=== PATIENT | male | born 1955 | race Caucasian/White ===

== ENCOUNTER 2016-08-07 20:36 | Emergency (ER) | payer SELFPAY ==
[2016-08-07] MEDS ORDERED: SULFAMETHOXAZOLE/TRIMETHOPRIM 800-160 MG TABLET PO ONE (23:52)
[2016-08-07] MEDS ORDERED: CEPHALEXIN 500 MG CAPSULE PO ONE (23:52)
[2016-08-07] MEDS ORDERED: HYDROCODONE/ACETAMINOPHEN 5-325 MG TABLET PO ONE (23:52)
--- NOTE | 2016-08-07 23:53 | ER Document Report ---
ED Extremity Problem, Lower - General Mode of Arrival: Wheelchair Information source: Patient, Relative - spouse TRAVEL OUTSIDE OF THE [place] IN LAST 30 DAYS: No - HPI Patient complains to provider of: Pain, Swelling Location: Knee, Leg Occurred: Other - Refer to HPI notes Onset/Duration: Gradual - General Chief Complaint: Knee Injury Stated Complaint: RIGHT KNEE INJURY Time Seen by Provider: 08/07/16 23:32 Notes: Patient is a 60-year-old male presents to the emergency department with swelling and pain to his right knee. Patient states that he injured his knee on 08/02/2016. Patient has had increased pain since then. Patient's pain is from the mid kneecap to his mid baker. Patient also tried to drain the area with a sterilized needle at home. Patient states there is no drainage with he poked the area needle. Patient states he has increased pain with movement and has nausea but denies any fevers or chills. Patient states that she has a history of glaucoma and seasonal allergies but is otherwise healthy. (INDRA LEBLANC) - Related Data Allergies/Adverse Reactions: aspirin Allergy (Unknown, Verified 08/07/16 21:23) Anaphylaxis Past Medical History - General Information source: Patient - Social History Smoking Status: Never Smoker Cigarette use (# per day): No Chew tobacco use (# tins/day): No Frequency of alcohol use: None Drug Abuse: Marijuana Occupation: [employer] Family History: None Patient has suicidal ideation: No Patient has homicidal ideation: No EENT Medical History: Reports: Eyes - Glaucoma Surgical Hx: Negative Review of Systems - Review of Systems Constitutional: No symptoms reported EENT: No symptoms reported Cardiovascular: No symptoms reported Respiratory: No symptoms reported Gastrointestinal: No symptoms reported Genitourinary: No symptoms reported Male Genitourinary: No symptoms reported Musculoskeletal: See HPI Skin: See HPI Hematologic/Lymphatic: No symptoms reported Neurological/Psychological: No symptoms reported -: Yes All other systems reviewed and negative Physical Exam - Vital signs Vitals: Temp Pulse Resp BP Pulse Ox 97.9 F 80 20 135/66 H 99 08/07/16 21:22 08/07/16 21:22 08/07/16 21:22 08/07/16 21:22 08/07/16 21:22 - Notes Notes: GENERAL: Alert, interacts well, appears uncomfortable. No acute distress. HEAD: Normocephalic, atraumatic. EYES: Pupils equal, round, and reactive to light. Extraocular movements intact. ENT: Oral mucosa moist, tongue midline. NECK: Full range of motion. Supple. Trachea midline. LUNGS: Clear to auscultation bilaterally, no wheezes, rales, or rhonchi. No respiratory distress. HEART: Regular rate and rhythm. No murmurs, gallops, or rubs. ABDOMEN: Soft, non-tender. Non-distended. Bowel sounds present in all 4 quadrants. EXTREMITIES: Moves all 4 extremities spontaneously. Full range of motion to the right leg and knee, limited only by pain. Able to bend the right knee past 90. Minimal effusion to the right knee with a 3 cm circular area of erythema. There is a central open area consistent with the patient using a needle. Erythema extends down to the baker anteriorly. No tenderness to the popliteal fossa. No edema, radial and dorsalis pedis pulses 2/4 bilaterally. No cyanosis. NEUROLOGICAL: Alert and oriented x3. Normal speech. PSYCH: Normal affect, normal mood. SKIN: Warm, dry, good capillary refill, normal turgor. (INDRA LEBLANC) Course - Re-evaluation Re-evalutation: 08/08/16 00:05 No effusion or bony abnormality noted on x-ray. Physical exam consistent with superficial cellulitis, no evidence of septic joint. No evidence of abscess. Discussed with patient the need for antibiotics, told him to stop sticking needles into his leg in order to drain an abscess it is not there. Asked patient to return to the emergency department for increasing redness, any fevers or any difficulty bending his knee. Started antibiotics in the form of Bactrim and Keflex. Discharged home. (NICHOLE DEMARCO) - Vital Signs Vital signs: Temp Pulse Resp BP Pulse Ox 98.0 F 71 16 137/68 H 94 08/07/16 23:56 08/07/16 23:56 08/07/16 23:56 08/07/16 23:56 08/07/16 23:56 Discharge - Discharge Clinical Impression: Cellulitis of left knee Hypertension Qualifiers: Hypertension type: essential hypertension Qualified Code(s): I10 - Essential ( primary) hypertension Condition: Stable Disposition: HOME, SELF-CARE Instructions: Cellulitis ([facility]) Additional Instructions: Please take the antibiotics as directed until they are gone. Please use ibuprofen (Motrin or Advil) 600-800 mg every 8 hours as needed for pain or fever. You may also use acetaminophen (Tylenol) 1000 mg every 4-6 hours as needed for pain or fever. Please be aware that many medications contain acetaminophen, do not exceed a total of 1000 mg of acetaminophen every 6 hours. Please return if the redness spreads, if you develop fevers, if your knee swells more or if you cannot bend your knee. Prescriptions: Cephalexin Monohydrate [Keflex 500 mg Capsule] 500 mg PO QID 7 Days Sulfamethoxazole/Trimethoprim [Bactrim Ds Tablet] 1 each PO BID 7 Days Scribe Attestation: 08/08/16 02:32 I personally performed the services described in the documentation, reviewed and edited the documentation which was dictated to the scribe in my presence, and it accurately records my words and actions. (NICHOLE DEMARCO) Scribe Documentation - Scribe Written by Edilberto:: Edilberto Anna, 08/08/2016 2:23 acting as scribe for :: Phil
[2016-08-08 00:09] VITALS: BP 137/68
--- NOTE | 2016-09-20 09:53 | OPERATIVE REPORT E ---
Operative Report NAME: MAHI KEENAN : 1955 AGE: 60Y DATE OF SURGERY: 08/08/2016 ROOM: PREOPERATIVE DIAGNOSIS: RIGHT PRETIBIAL ABSCESS. POSTOPERATIVE DIAGNOSIS: RIGHT PRETIBIAL ABSCESS. OPERATION: Incision and drainage of right pretibial abscess. SURGEON: ANDREIA KIM M.D. ANESTHESIA: 10 mL of local 1% lidocaine. ESTIMATED BLOOD LOSS 10 mL. IMPLANTS: None. COMPLICATIONS: None. DRAINS: None. PACKING: Iodoform packing was placed. DESCRIPTION OF PROCEDURE: Patient had a bedside incision and drainage of pretibial abscess on the right side. An incision and drainage tray from the ER was obtained and after cleaning the right pretibial region with chlorhexidine, sterile towels and drapes were applied, and the sterile incision and drainage tray was opened. I had sterile gloves and proceeded then to using a #11 blade to do a 1-1/2 incision right over the pretibial abscess. Of note: I had already injected the region with 10 mL of 1% lidocaine and while I prepared the leg, the lidocaine had taken. The minute I opened the incision, pus came out and cultures were obtained. I proceeded then to use a clamp to spread and expose all the loculations. I proceeded to then squeeze and express all the pus available. Then, I proceeded to use a sterile syringe and inject sterile saline solution to clear up the region. Sterile Iodoform packing was then inserted and cut and then a pack of 4 x 4 dressings were applied, and overwrapped with Kerlix. All other sterile towel and drapes were removed and disposed. The sharps were disposed in the sharps container. Patient tolerated the procedure well. PATIENT PLAN: Is to be admitted for IV antibiotics and dressing changes. DICTATING PHYSICIAN: Jannet MAO [id number] PHY#: [id number] ID: [id number] JOB#: [id number] ACCT: [id number] cc:ANDREIA KIM M.D. >
== END 2016-08-08 00:10 | disposition home or self-care (01) ==
LOC: ER 20:36
DX: L03.116 Cellulitis of left lower limb (principal); Z88.6 Allergy status to analgesic agent
CPT/HCPCS: 99283

== ENCOUNTER 2016-08-08 22:32 | Inpatient (IN) | payer SELFPAY ==
[2016-08-09] MEDS ORDERED: VANCOMYCIN HCL INJ 1000 MG VIAL IV ONE ×2 (02:34→02:36)
[2016-08-09] MEDS ORDERED: OXYCODONE-ACETAMINOPHEN 5-325 MG TABLET PO ONE (02:34)
[2016-08-09] MEDS ORDERED: NORMAL SALINE 1000 ML 1,000 ML IV ONE (02:36)
[2016-08-09] MEDS ORDERED: CEFAZOLIN 1 GM/D5W RTU 50 ML IV ONE (02:36)
[2016-08-09 03:48] LABS: ABSOLUTE BASOPHILS # (AUTO) 0.1 10^3/uL (0.0-0.2); ABSOLUTE EOSINOPHILS # (AUTO) 0.1 10^3/uL (0.0-0.6); ABSOLUTE LYMPHOCYTES (AUTO) 1.2 10^3/uL (0.5-4.7); ABSOLUTE MONOCYTES (AUTO) 1.1 10^3/uL (0.1-1.4); ABSOLUTE NEUT (AUTO) 15.4 10^3/uL (1.7-8.2); BASOPHILS % (AUTO) 0.3 % (0-2); EOSINOPHILS % (AUTO) 0.3 % (0-6); HEMATOCRIT 38.8 % (37.9-51.0); HGB HCT DIFFERENCE 0.2; LYMPHOCYTES % (AUTO) 6.5 % (13-45); MEAN CORPUSCULAR HEMOGLOBIN 30.6 pg (27.0-33.4); MEAN CORPUSCULAR HGB CONC 33.3 g/dL (32.0-36.0); MEAN CORPUSCULAR VOLUME 92 fl (80-97); MONOCYTES % (AUTO) 6.4 % (3-13); RED BLOOD COUNT 4.23 10^6/uL (4.35-5.55); SEGMENTED NEUTROPHILS % (AUTO) 86.5 % (42-78); WHITE BLOOD COUNT 17.8 10^3/uL (4.0-10.5)
[2016-08-09 03:55] LABS: ALANINE AMINOTRANSFERASE 30 U/L (21-72); ALBUMIN 4.3 g/dL (3.5-5.0); ALKALINE PHOSPHATASE 76 U/L (38-126); ANION GAP 12 (5-19); ASPARTATE AMINO TRANSFERASE 22 U/L (17-59); BILIRUBIN,DIRECT 0.5 mg/dL (0.0-0.4); BILIRUBIN,TOTAL 1.2 mg/dL (0.2-1.3); BLOOD UREA NITROGEN 27 mg/dL (7-20); CALCIUM 10.1 mg/dL (8.4-10.2); CARBON DIOXIDE 27 mmol/L (22-30); CHLORIDE 100 mmol/L (98-107); CREATININE RESULT 1.07 mg/dL (0.52-1.25); GLUCOSE 113 mg/dL (75-110); POTASSIUM 4.6 mmol/L (3.6-5.0); SODIUM 139.1 mmol/L (137-145)
[2016-08-09] MEDS ORDERED: MORPHINE SULFATE 10 MG/ML INJ ONE (06:53)
[2016-08-09] MEDS ORDERED: ONDANSETRON HCL INJ/PF 4 MG/2 ML SDV ONE (07:30)
[2016-08-09] MEDS ORDERED: HYDROMORPHONE HCL INJ/PF 2 MG/ML AMPULE ONE ×2 (09:02→12:55)
[2016-08-09] MEDS ORDERED: LIDOCAINE 1% INJ-PF (10 MG/ML) 30 ML SDV ONE (12:40)
[2016-08-09] MEDS ORDERED: OXYCODONE HCL IR 5 MG TABLET ONE (15:30)
[2016-08-09] MEDS ORDERED: MAG HYDROX/AL HYDROX/SIMETH SUSP 30 ML UDCUP ONE (15:46)
[2016-08-09] MEDS ORDERED: ACETAMINOPHEN 325 MG TABLET ONE (16:10)
[2016-08-09] MEDS ORDERED: ACETAMINOPHEN 325 MG TABLET PO PRN (18:23)
[2016-08-09] MEDS ORDERED: MAG HYDROX/AL HYDROX/SIMETH SUSP 30 ML UDCUP PO PRN (22:00)
[2016-08-09] MEDS: VANCOMYCIN HCL 1,250 MG in DEXTROSE 5%-WATER 250 ML IV SCH ×2 (23:15→23:46)
[2016-08-09] MEDS ORDERED: VANCOMYCIN HCL INJ 1000 MG VIAL ONE (23:24)
[2016-08-09] MEDS: OXYCODONE HCL IR 5 MG TABLET PO PRN (23:44)
[2016-08-10] MEDS: OXYCODONE HCL IR 5 MG TABLET PO PRN ×5 (03:45→21:11)
[2016-08-10 06:25] LABS: HEMATOCRIT 34.4 % (37.9-51.0); HEMOGLOBIN 11.3 g/dL (13.5-17.0); HGB HCT DIFFERENCE -0.5; MEAN CORPUSCULAR HEMOGLOBIN 30.7 pg (27.0-33.4); MEAN CORPUSCULAR HGB CONC 32.9 g/dL (32.0-36.0); MEAN CORPUSCULAR VOLUME 93 fl (80-97); RED BLOOD COUNT 3.68 10^6/uL (4.35-5.55); RED CELL DISTRIBUTION WIDTH 12.9 % (11.5-14.0); WHITE BLOOD COUNT 14.9 10^3/uL (4.0-10.5)
[2016-08-10 06:37] LABS: ANION GAP 11 (5-19); BLOOD UREA NITROGEN 16 mg/dL (7-20); CALCIUM 9.5 mg/dL (8.4-10.2); CARBON DIOXIDE 25 mmol/L (22-30); CHLORIDE 101 mmol/L (98-107); CREATININE RESULT 0.83 mg/dL (0.52-1.25); GLUCOSE 103 mg/dL (75-110); POTASSIUM 4.1 mmol/L (3.6-5.0); SODIUM 136.9 mmol/L (137-145)
--- NOTE | 2016-08-10 08:44 | HISTORY AND PHYSICAL E ---
History and Physical NAME: MAHI KEENAN : 1955 AGE: 60Y ADMITTED: 08/09/2016 ROOM: 430 TIME OF ADMISSION: 1330 hours. PRIMARY CARE PROVIDER: None. CHIEF COMPLAINT: Right knee pain. 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 Patient feels as though he had a puncture wound to his right knee while he was at work. 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 He is not sure exactly what caused the puncture wound as he could never find out. Nonetheless, since his injury, he has had increased worsening of swelling. By the time of my evaluation, he had already been evaluated by Dr. Vinita Judge of orthopedics, and had incision and drainage to his right knee. He complains of pain to this area despite having had IV pain medication in the emergency department. PAST MEDICAL HISTORY: None. PAST SURGICAL HISTORY: He has had, he states, a rectal polypectomy in the past (noncancerous). SOCIAL HISTORY: He denies tobacco or alcohol use. 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 FAMILY HISTORY: Denies any family history of diabetes or hypertension. MEDICATIONS: None. ALLERGIES: ASPIRIN. CODE STATUS: FULL CODE STATUS. REVIEW OF SYSTEMS: He denies fevers, chills, weight loss, weight gain, fatigue, anorexia, visual disturbance, headache, hearing loss, dyspnea, cough, hemoptysis, pleurisy, chest pain, paroxysmal nocturnal dyspnea, orthopnea, edema, abdominal pain, nausea, vomiting, diarrhea, constipation, hematemesis, melena, hematochezia, dysuria, urinary urgency or frequency, rash, or hematuria. He does have erythema around his right knee and swelling of his right knee. He denies weakness, numbness, dizziness, dysphagia, dysarthria, ataxia, polydipsia, polyuria, hot or cold intolerance, depression, anxiety, hallucinations, delusions, bleeding, bruising. PHYSICAL EXAMINATION: VITAL SIGNS: Temperature 99.3, blood pressure 112/64, pulse 89, respirations 16. O2 saturation is 95%. GENERAL: He is alert. He is in no apparent distress. HEENT: Normocephalic. Sclerae nonicteric. Conjunctivae clear. Extraocular movements intact. Pupils equal, round, reactive to light and accommodation. Oropharynx has moist mucous membranes. NECK: Has midline trachea. No thyromegaly. RESPIRATORY: Clear to auscultation. No wheeze, rhonchi. CARDIAC: Regular rate, rhythm. No murmurs, gallops, rubs. ABDOMEN: Soft, nontender, nondistended. Positive bowel sounds. No rebound or guarding. EXTREMITIES: He has pitting edema in his right lower extremity. No edema in the left lower extremity. He has gauze dressing to his right knee at recent I and D site. VASCULAR EXAM: Normal peripheral pulses. NEUROLOGIC: He is alert. He is oriented to person, place and time with normal speech. Cranial nerves intact, 5/5 strength in all 4 extremities. SKIN EXAMINATION: Erythema around right anterior knee to around mid-tibial area distally and distal femur area proximally. PSYCHIATRIC: Normal mood and affect. LABORATORIES: White blood count 17.8, hemoglobin is 13.0, platelet count 233. Sodium 139, potassium 4.5, chloride 100, bicarbonate 27, BUN 26. Creatinine 1.07, glucose 112. MRI shows no intraarticular fluid collection in the right knee. ASSESSMENT AND PLAN: 1. RIGHT PREPATELLAR SEPTIC BURSITIS/RIGHT LOWER EXTREMITY CELLULITIS. Patient is status post incision and drainage by Dr. Vinita Judge of Orthopedics. I will continue IV vancomycin that was initiated in the emergency department pending further culture and sensitivity. Elevate leg. Daily dressing changes. Oxycodone for pain p.r.n. 2. SYSTEMIC INFLAMMATORY RESPONSE SYNDROME, SECONDARY TO SOFT TISSUE INFECTION MENTIONED ABOVE. DICTATING PHYSICIAN: HUGH SANTILLAN M.D. [id number] PHY#: [id number] ID: [id number] JOB#: [id number] ACCT: [id number] cc: >
[2016-08-10 14:19] LABS: APPEARANCE,URINE CLEAR; BILIRUBIN,URINE NEGATIVE (NEGATIVE); GLUCOSE, URINE NEGATIVE (NEGATIVE); KETONES,URINE NEGATIVE (NEGATIVE); LEUKOCYTE ESTERASE,URINE NEGATIVE (NEGATIVE); NITRITE,URINE NEGATIVE (NEGATIVE); PROTEIN,URINE NEGATIVE (NEGATIVE); URINE SPECIFIC GRAVITY 1.023; UROBILINOGEN,URINE NEGATIVE mg/dL (<2.0)
[2016-08-10] MEDS: DOCUSATE SODIUM 100 MG CAPSULE PO SCH (17:06)
--- NOTE | 2016-08-10 17:15 | XCELERA REPORT ---
[address] [address] Lower Extremity Venous Evaluation Name: MAHI KEENAN JR Age: 60 yrs Gender: Male : 1955 Patient Status: Inpatient Patient Location: 4S\S\430\S\A Study Date: 08/10/2016 03:37 PM Procedure: Color flow and duplex imaging of the veins of the right lower extremity as well as the left Common Femoral vein. Reason For Study: right leg pain/swelling Ordering Physician: HUGH MUNOZ Performed By: Yashira Tiwari Right Sided Venous Evaluation Normal vessel filling wall to wall, compression and augmentation as well as Colour flow down to the infrageniculate veins. Left Sided Venous Evaluation The left common femoral vein is fully compressible. Spontaneous and phasic flow is present in the left common femoral vein. Critical Findings Called in to Dr Munoz at about 1600. Interpretation Summary No duplex evidence of DVT or obstruction in the right lower extremity nor in the left Common Femoral vein. : HUGH MUNOZ > Issa Andrew
--- NOTE | 2016-08-10 20:51 | PROGRESS NOTE E ---
Progress Note NAME: MAHI KEENAN : 1955 AGE: 60Y DATE: 08/10/2016 ROOM: 430 TIME SPENT MANAGING PATIENT: 25 minutes SUBJECTIVE: The patient has improved pain in his right lower extremity, but he still has a significant amount of pain and swelling. He is also having constipation per nursing staff. He denies fever, chills, chest pain, shortness of breath, abdominal pain, nausea, vomiting. OBJECTIVE: VITAL SIGNS: Temperature 98.0, blood pressure 119/62, pulse 64, respirations 20. GENERAL: He is alert, in no acute distress. HEENT: Sclerae is anicteric. Conjunctivae clear. Oropharynx has moist mucous membranes. NECK: No JVD. Midline trachea. RESPIRATORY: Clear to auscultation. No wheeze or rhonchi. CARDIAC: Regular rate and rhythm. No murmurs, gallops, or rubs. ABDOMEN: Soft, nontender, nondistended. Positive bowel sounds. No rebound, no guarding. EXTREMITIES: He has pitting edema in right lower extremity. SKIN: He still has a fair amount of erythema and warmth about the right lower extremity from distal femur down to around the mid tibial region. LABS: White blood count 14.9, hemoglobin 11.3. Chemistry panel is unremarkable. C-reactive protein elevated at 192. Sed rate 51. ASSESSMENT AND PLAN: 1. SYSTEMIC INFLAMMATORY RESPONSE SYNDROME SECONDARY TO SOFT TISSUE INFECTION MENTIONED ABOVE. Improving. The patient is afebrile. White blood count trending down. 2. RIGHT PREPATELLAR SEPTIC BURSITIS/RIGHT LOWER EXTREMITY CELLULITIS. Continue intravenous vancomycin pending further culture and sensitivity. Wound culture tentatively growing gram-positive cocci in clusters and group G beta streptococcus. The patient is status post I and D by Dr. Talamantes of Orthopedics on 08/09/2016. 3. RIGHT LOWER EXTREMITY SWELLING. Check right lower extremity venous Doppler to rule out deep venous thrombosis. DICTATING PHYSICIAN: HUGH SANTILLAN M.D. [id number] PHY#: [id number] ID: [id number] JOB#: [id number] ACCT: [id number] cc: >
[2016-08-10] MEDS: VANCOMYCIN HCL 1,250 MG in DEXTROSE 5%-WATER 250 ML IV SCH (21:10)
[2016-08-11] MEDS: OXYCODONE HCL IR 5 MG TABLET PO PRN ×2 (02:01→08:27)
[2016-08-11 05:57] LABS: ABSOLUTE BASOPHILS # (AUTO) 0.1 10^3/uL (0.0-0.2); ABSOLUTE EOSINOPHILS # (AUTO) 0.2 10^3/uL (0.0-0.6); ABSOLUTE LYMPHOCYTES (AUTO) 1.3 10^3/uL (0.5-4.7); ABSOLUTE MONOCYTES (AUTO) 0.7 10^3/uL (0.1-1.4); ABSOLUTE NEUT (AUTO) 7.8 10^3/uL (1.7-8.2); EOSINOPHILS % (AUTO) 2.2 % (0-6); HEMOGLOBIN 11.4 g/dL (13.5-17.0); HGB HCT DIFFERENCE 1.2; LYMPHOCYTES % (AUTO) 13.2 % (13-45); MEAN CORPUSCULAR HEMOGLOBIN 31.6 pg (27.0-33.4); MEAN CORPUSCULAR HGB CONC 34.5 g/dL (32.0-36.0); MEAN CORPUSCULAR VOLUME 92 fl (80-97); MONOCYTES % (AUTO) 6.8 % (3-13); RED BLOOD COUNT 3.61 10^6/uL (4.35-5.55); RED CELL DISTRIBUTION WIDTH 12.7 % (11.5-14.0); SEGMENTED NEUTROPHILS % (AUTO) 76.8 % (42-78); WHITE BLOOD COUNT 10.2 10^3/uL (4.0-10.5)
[2016-08-11 06:13] LABS: ANION GAP 10 (5-19); BLOOD UREA NITROGEN 18 mg/dL (7-20); CALCIUM 9.9 mg/dL (8.4-10.2); CARBON DIOXIDE 28 mmol/L (22-30); CHLORIDE 102 mmol/L (98-107); CREATININE RESULT 0.79 mg/dL (0.52-1.25); GLUCOSE 108 mg/dL (75-110); SODIUM 139.7 mmol/L (137-145)
[2016-08-11 06:21] LABS: POTASSIUM 5.4 mmol/L (3.6-5.0)
[2016-08-11] MEDS ORDERED: ENOXAPARIN SODIUM INJ 40 MG/0.4 ML DISP.SYRIN SUBCUT SCH (08:00)
[2016-08-11 09:18] VITALS: BP 141/81
[2016-08-11] MEDS: VANCOMYCIN HCL 1,250 MG in DEXTROSE 5%-WATER 250 ML IV SCH (10:41)
[2016-08-11] MEDS: DOCUSATE SODIUM 100 MG CAPSULE PO SCH (10:41)
[2016-08-11 11:27] LABS: ANION GAP 14 (5-19); BLOOD UREA NITROGEN 17 mg/dL (7-20); CALCIUM 10.2 mg/dL (8.4-10.2); CARBON DIOXIDE 26 mmol/L (22-30); CHLORIDE 100 mmol/L (98-107); CREATININE RESULT 0.77 mg/dL (0.52-1.25); GLUCOSE 108 mg/dL (75-110); SODIUM 140.2 mmol/L (137-145)
--- NOTE | 2016-08-11 13:57 | DISCHARGE SUMMARY E ---
Discharge Summary NAME: MAHI KEENAN : 1955 AGE: 60Y ADMITTED: 08/09/2016 DISCHARGED: 08/11/2016 TIME OF DISCHARGE: 10:45 a.m. TIME SPENT ON DISCHARGE: Thirty minutes. DISCHARGE DIAGNOSES: 1. MRSA/Streptococcus prepatellar bursitis/cellulitis of the right knee. 2. Systemic inflammatory response syndrome secondary to #1. 3. Constipation. DISCHARGE MEDICATIONS: 1. Doxycycline 100 mg p.o. b.i.d. x14 days. 2. Percocet 10/325 one p.o. q.6 h. p.r.n. pain. 3. Colace 100 mg p.o. b.i.d. HOSPITAL COURSE: The patient was seen in the emergency department for right prepatellar bursitis by Dr. Talamantes of orthopedics and underwent incision and drainage in the emergency department with wound culture. He was admitted to the hospitalist service and initially started on IV vancomycin. Wound culture grew MRSA and also group G beta Streptococcus. The organism was sensitive to doxycycline, Bactrim, rifampin and vancomycin. The patient's lower extremity erythema and induration markedly improved on IV vancomycin to the point he is stable for discharge on oral antibiotic regimen. His leg was repacked by me on 08/11/2016. He is advised to continue outer dry gauze dressing changes daily until followup with orthopedics. We will have him follow up with Dr. Talamantes of orthopedics and also [facility]. DISCHARGE ACTIVITY: As tolerated. DISCHARGE DIET: Regular diet. DISCHARGE CONDITION: Stable. CODE STATUS: FULL CODE STATUS. DISCHARGE ALLERGIES: ASPIRIN. PHYSICAL EXAMINATION AT TIME OF DISCHARGE: VITAL SIGNS: Temperature 98.1, blood pressure 141/81, pulse 68, respirations 20. GENERAL: She is alert and in no acute distress. RESPIRATORY: Clear to auscultation. CARDIAC: Regular rate and rhythm. ABDOMEN: Soft, nontender. EXTREMITIES: He has some trace pitting edema in the right lower extremity. SKIN: Erythema and induration surrounding the right knee have markedly improved from admission. He does have a 1 cm incision over the right prepatellar bursa. LABS AT TIME OF DISCHARGE: White blood count 10.2, hemoglobin 11.4, hematocrit 33.0, platelets 229. Sodium 139, potassium 5.4, chloride 102, bicarbonate 28, BUN 18, creatinine 0.79, glucose 108, calcium 9.9. C-reactive protein 192. Sed rate 51. MRI of the knee showed cellulitis around the right knee with a fluid collection at the prepatellar bursa. No evidence of osteomyelitis or intraarticular fluid. Venous Doppler of the right lower extremity was negative for DVT. DISCHARGE FOLLOWUP: 1. Follow up with Dr. Talamantes of orthopedics. 2. Follow up with [facility]. DICTATING PHYSICIAN: UHGH SANTILLAN M.D. [id number] PHY#: [id number] ID: [id number] JOB#: [id number] ACCT: [id number] cc:[facility] ANDREIA CELESTE M.D., ROBERT >
[2016-08-11] MEDS ORDERED: VANCOMYCIN HCL 1,250 MG in DEXTROSE 5%-WATER 250 ML IV SCH (18:00)
--- NOTE | 2016-09-19 09:05 | ER Document Report ---
ED Extremity Problem, Lower - General Chief Complaint: Knee Pain Stated Complaint: KNEE PAIN Time Seen by Provider: 08/09/16 02:13 Mode of Arrival: Wheelchair Information source: Patient Notes: Patient is a 61-year-old male who presents to the ER today for right knee pain that has worsened since being here approximately 1 day ago being diagnosed with cellulitis, given antibiotics. Patient states that he was told that if the swelling, redness or pain worsen to come back immediately. He is taking his antibiotics but states that it is so painful that he cannot sleep or get any rest and that he can barely bend the knee much less walk on it. He states he cannot bear weight at all due to the pain. He states that the swelling has worsened to surrounding the entire knee. He does admit injury on August 02 by accidentally kneeling on a nail. TRAVEL OUTSIDE OF THE [place] IN LAST 30 DAYS: No - Related Data Allergies/Adverse Reactions: aspirin Allergy (Unknown, Verified 08/07/16 21:23) Anaphylaxis Home Medications: Current Home Medications Diphenhydramine HCl [Benadryl] 50 mg PO QHS 08/09/16 [History] Past Medical History - General Information source: Patient - Social History Smoking Status: Never Smoker Chew tobacco use (# tins/day): No Frequency of alcohol use: None Family History: None Patient has suicidal ideation: No Patient has homicidal ideation: No Renal/ Medical History: Denies: Hx Peritoneal Dialysis Surgical Hx: Negative - Immunizations Hx Diphtheria, Pertussis, Tetanus Vaccination: Yes Review of Systems - Review of Systems Constitutional: No symptoms reported EENT: No symptoms reported Cardiovascular: No symptoms reported Respiratory: No symptoms reported Gastrointestinal: No symptoms reported Genitourinary: No symptoms reported Male Genitourinary: No symptoms reported Musculoskeletal: See HPI Skin: See HPI Hematologic/Lymphatic: No symptoms reported Neurological/Psychological: No symptoms reported Physical Exam - Vital signs Vitals: Temp Pulse Resp BP Pulse Ox 99.3 F 79 16 112/64 94 08/08/16 22:44 08/08/16 22:44 08/08/16 22:44 08/08/16 22:44 08/08/16 22:44 - Notes Notes: PHYSICAL EXAMINATION: GENERAL: Obviously uncomfortable, but in no acute distress. HEAD: Atraumatic, normocephalic. EYES: Pupils equal round and reactive to light, extraocular movements intact, sclera anicteric, conjunctiva are normal. NECK: Normal range of motion, supple without lymphadenopathy LUNGS: CTAB and equal. No wheezes rales or rhonchi. HEART: Regular rate and rhythm without murmurs EXTREMITIES: Extremely limited range of motion secondary to pain of the right knee, edema circumferential to the right knee, extremely tender to palpation no pitting edema. No cyanosis. NEUROLOGICAL: Cranial nerves grossly intact. Normal sensory/motor exams. PSYCH: Normal mood, normal affect. SKIN: Warm, Dry, normal turgor, erythema and edema circumferential to the right knee, extremely tender to palpation, small scab overlying center Course - Re-evaluation Re-evalutation: 09/19/16 09:08 This is a paper chart as this is during downtime. Lab work is unremarkable today, however I am concerned for septic joint at this time with failure of outpatient antibiotics. Dr. Talamantes, orthopedic health education coordinator was called and will come evaluate the patient in a few hours as he is out of town. He advises MRI. MRI did show an abscess, possibly where patient initially injured by kneeling on nail due to proximity to puncture wound. Patient was admitted for cellulitis of the right knee, white count is normal, patient afebrile. 09/19/16 09:10 - Vital Signs Vital signs: Temp Pulse Resp BP Pulse Ox 98.1 F 68 20 141/81 H 100 08/11/16 15:27 08/11/16 15:27 08/11/16 15:27 08/11/16 08:15 08/11/16 15:27 - Laboratory Result Diagrams: 08/11/16 05:24 08/11/16 10:09 Laboratory results interpreted by me: 08/09/16 08/09/16 08/09/16 03:25 03:25 06:10 WBC 17.8 H RBC 4.23 L Hgb 13.0 L Seg Neutrophils % 86.5 H Lymphocytes % 6.5 L Absolute Neutrophils 15.4 H ESR BUN 27 H Glucose 113 H Lactic Acid Direct Bilirubin 0.5 H C-Reactive Protein 192.9 H 08/09/16 08/09/16 06:10 06:10 WBC RBC Hgb Seg Neutrophils % Lymphocytes % Absolute Neutrophils ESR 51 H BUN Glucose Lactic Acid 0.6 L Direct Bilirubin C-Reactive Protein Discharge - Discharge Clinical Impression: MRSA cellulitis Condition: Stable Disposition: ADMITTED INPATIENT
--- NOTE | 2016-09-21 17:31 | Operative Report ---
Operative Report DATE OF SURGERY: 08/09/16 PREOPERATIVE DIAGNOSIS: Right pretibial abscess POSTOPERATIVE DIAGNOSIS: Same OPERATION: Incision and drainage of right pretibial abscess SURGEON: ANDREIA KIM ANESTHESIA: GA TISSUE REMOVED OR ALTERED: None COMPLICATIONS: None ESTIMATED BLOOD LOSS: 15mL INTRAOPERATIVE FINDINGS: As above PROCEDURE: In the emergency department patient right pretibial area was prepped with chlorhexidine. Sterile towels were applied around the pretibial mass and redness. Under sterile condition I injected 10 mL's of 1% lidocaine to numb up the skin. A sterile incision and drainage tray was opened and within the trachea there were sterile instruments and knife. I used the 11 blade to do a 1 inch incision right over the abscess. Immediately drainage of the pus was seen and cultures were taken. Hemostat was inserted and spread to breakup any loculations. Proceeded to use 2000 squeezed the remaining abscess. Sterile saline solution was arm incision tray and syringe was used to then irrigate the abscess area. After several irrigations with a syringe of satisfied with the drainage of the abscess and a iodoform packing was inserted and the tail was left outside. Over 4 dressings were applied and overwrapped with a soft bandage. [place] was then used and then remaining drapes were removed straight Steri-Strips were removed and the sharps container and instruments were then removed. We eliminated all the dirty drapes. Patient tolerated the procedure very well. He can weight-bear as tolerated. Pain control while overnight. Agree with IV antibiotics. Will see him in the morning.
== END 2016-08-11 17:19 | disposition home or self-care (01) | DRG 603 ==
LOC: ER 22:32 → 4S 08-09 13:08
PROVIDERS: ADMIT Family Medicine; ATTEND Family Medicine
PROC: 0J9L0ZX Drainage of Right Upper Leg Subcutaneous Tissue and Fascia, Open Approach, Diagnostic (ICD-10-PCS; principal; 2016-08-09)
DX: L03.115 Cellulitis of right lower limb (principal); M71.161 Other infective bursitis, right knee; B95.62 Methicillin resistant Staphylococcus aureus infection as the cause of diseases classified elsewhere; B95.4 Other streptococcus as the cause of diseases classified elsewhere; K59.00 Constipation, unspecified; Z88.6 Allergy status to analgesic agent; Z86.010 Personal history of colon polyps
CPT/HCPCS: 36415; 71010; 80048; 80053; 80202; 81001; 83605; 85025; 85027; 85652; 86140; 87070; 87075; 87077; 87186; 87205; 93971; 96374; 96375; 99284; A6266; A9576; J0690; J1170; J1650; J2270; J2405; J3370; J3490; J7060

== ENCOUNTER 2019-03-03 09:01 | Emergency (ER) | payer SELFPAY ==
[2019-03-03] MEDS ORDERED: HYDROCODONE/ACETAMINOPHEN 5-325 MG TABLET PO ONE (09:25)
--- NOTE | 2019-03-03 09:27 | ER Document Report ---
HPI - HPI Patient complains to provider of: Left knee pain Time Seen by Provider: 03/03/19 09:22 Onset: Other - Several months Onset/Duration: Persistent Quality of pain: Sharp Pain Level: 3 Context: Patient states that he fell through a dog several months ago injuring the left knee. Patient states that he has had persistent pain to the joints. Patient denies any new injury. Patient denies any fever. Patient complains of increased pain with weightbearing. Associated Symptoms: Other - Left knee pain. denies: Nausea, Vomiting Exacerbated by: Standing, Movement, Walking Relieved by: Denies Similar symptoms previously: No Recently seen / treated by doctor: No - ROS ROS below otherwise negative: Yes Systems Reviewed and Negative: Yes All other systems reviewed and negative - CONSTITUTIONAL Constitutional: DENIES: Fever, Chills - NEURO Neurology: DENIES: Weakness - GASTROINTESTINAL Gastrointestinal: DENIES: Nausea, Patient vomiting - MUSCULOSKELETAL Musculoskeletal: REPORTS: Extremity pain. 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 IN LAST 30 DAYS: No - HEENT HEENT: Atraumatic, Normocephalic - NECK Neck: Normal Inspection - RESPIRATORY Respiratory: No Respiratory Distress - CARDIOVASCULAR Pulses: Normal: Posterior tibial - MUSCULOSKELETAL/EXTREMETIES Musculoskeletal/Extremeties: MAEW, FROM, Tender - Left knee joint tenderness to medial compartment, no laxity with varus or valgus maneuvers. Patellar tendon intact. No joint effusion. Normal skin color temperature overlying joint, No Edema - NEURO Level of Consciousness: Awake, Alert, Appropriate Motor/Sensory: No Motor Deficit, No Sensory Deficit - DERM Integumentary: Warm, Dry, No Rash Course - Vital Signs Vital signs: Temp Pulse Resp BP Pulse Ox 98 F 78 18 143/109 H 96 12/09/19 09:21 03/03/19 09:21 03/03/19 09:21 03/03/19 09:21 03/03/19 09:21 - Diagnostic Test Radiology reviewed: Image reviewed, Reports reviewed Procedures - Immobilization Left Knee Pre-Proc Neuro Vasc Exam: Normal Immobilizer type: [place] wrap Performed by: PCT Post-Proc Neuro Vasc Exam: Normal Alignment checked and good: Yes Discharge - Discharge Clinical Impression: Left knee pain Qualifiers: Chronicity: unspecified Qualified Code(s): M25.562 - Pain in left knee Condition: Stable Disposition: HOME, SELF-CARE Instructions: [place] Wrap ([facility]), Use of Crutches ([facility]), Sprained Knee ([facility]) Additional Instructions: Return immediately for any new or worsening symptoms Followup with your primary care provider, call tomorrow to make a followup appointment Follow-up with orthopedics for further evaluation, call today to make a follow- up appointment Prescriptions: Capsaicin [Arthritis Pain Relief] 1 applic TP TID PRN #42.5 cream..g. PRN Reason: Hydrocodone/Acetaminophen [[place] 5-325 mg Tablet] 1 tab PO Q6 PRN #10 tablet PRN Reason: Forms: Return to Work Referrals: [facility] [Provider Group] - Follow up as needed [facility] [Provider Group] - Follow up as needed
--- NOTE | 2019-03-03 10:13 | RADIOLOGY REPORT (SQ) ---
EXAM DESCRIPTION: KNEE LEFT 4 VIEW COMPLETED DATE/TIME: 03/03/2019 9:43 am REASON FOR STUDY: L knee pain, hx fall COMPARISON: None. NUMBER OF VIEWS: Four views. TECHNIQUE: AP, lateral, and both oblique radiographic images acquired of the left knee. LIMITATIONS: None. FINDINGS: MINERALIZATION: Normal. BONES: No acute fracture or dislocation. No worrisome bone lesions. JOINT: No effusion. SOFT TISSUES: No soft tissue swelling. No radio-opaque foreign body. OTHER: No other significant finding. IMPRESSION: NEGATIVE STUDY OF THE LEFT KNEE. NO RADIOGRAPHIC EVIDENCE OF ACUTE INJURY. TECHNICAL DOCUMENTATION: JOB ID: [id number] [employer]- All Rights Reserved Reading location - IP/workstation name: [email or web address]
[2019-03-03 10:34] VITALS: BP 150/85
== END 2019-03-03 10:50 | disposition home or self-care (01) ==
LOC: ER 09:01
DX: M25.562 Pain in left knee (principal); W17.89XA Other fall from one level to another, initial encounter; I10 Essential (primary) hypertension; F12.10 Cannabis abuse, uncomplicated
CPT/HCPCS: 99283